=== PATIENT | female | born 1990 | race Two or more races ===

== ENCOUNTER → 2024-06-26 | Outpatient (CLI) | payer MEDICAID, SELFPAY ==
--- NOTE | 2024-06-26 16:00 | XR_ITS ---
Examination: Pelvic ultrasound, transabdominal, complete Technique: Transabdominal ultrasound of the pelvis performed using grayscale imaging Date and time of exam: June 26, 2024 1606 hours INDICATIONS: Irregular heavy menses [age] years FINDINGS: Uterus 8.7 cm endometrial stripe 0.8 cm No uterine mass or intrauterine gestation Right ovary 3.6 cm arterial flow 19 mm 14 mm follicular cyst Left ovary 2.7 cm arterial flow IMPRESSION: No uterine mass or intrauterine gestation
== END | disposition home or self-care (01) ==
PROVIDERS: PCP Physician Assistant; Referring Provider Physician Assistant; Visit Provider Physician Assistant
DX: N92.0 Excessive and frequent menstruation with regular cycle (principal)
CPT/HCPCS: 76856